=== PATIENT | male | born 1975 | race Two or more races ===

== ENCOUNTER 2023-09-21 17:35 | Emergency (ER) | payer SELFPAY ==
[~2023-09-21] VITALS: Ht 172.7 cm; Wt 87.1 kg
[2023-09-21] MEDS: TETANUS-DIPTH-ACEL PERTUSSIS 0.5ML SYR Tdap IM ONE (21:28)
[2023-09-21 21:29] VITALS: BP 132/87; PULSE 78; RESP 18; TEMP 97.6; O2SAT 97
== END 2023-09-21 21:41 | disposition home or self-care (01) ==
LOC: ER 17:35
DX: S61.411A Laceration without foreign body of right hand, initial encounter (principal); W45.8XXA Other foreign body or object entering through skin, initial encounter; Y93.89 Activity, other specified; Y92.096 Garden or yard of other non-institutional residence as the place of occurrence of the external cause; Y99.8 Other external cause status
CPT/HCPCS: 12002; 90471; 90715